=== PATIENT | male | born 1960 | race Caucasian/White ===

== ENCOUNTER 2019-06-19 01:22 | Emergency (ER) | payer OTHER ==
[2019-06-19] MEDS ORDERED: Sodium Chloride 0.9% 1,000 ML IV ONE (01:25)
--- NOTE | 2019-06-19 01:25 | EDM.PDOC ---
ED HPI GENERAL MEDICAL PROBLEM - General Stated Complaint: PT'S HEART RATE IS RACING Time Seen by Provider: 06/19/19 01:25 Source of Information: Reports: Patient - History of Present Illness INITIAL COMMENTS - FREE TEXT/NARRATIVE: HISTORY AND PHYSICAL: History of present illness: [Patient presents for palpitations present for 24 hours, he does have a prior history of atrial fibrillation and presents A. fib and RVR rate ranging up to 140 is provided fluids and Cardizem with resolution of RVR, however he is rate controlled atrial fibrillation has no symptoms such as fever nausea vomiting diarrhea constipation chest pain shortness breath headache dizziness palpitation at this time Patient was going to be admitted for observation however he refused as he wants to return home on [place] train at 11 AM hence he is refusing admission however he has been rate controlled on an extended stay in the emergency room air will provide him metoprolol and started Xarelto and below these findings ] Review of systems: As per history of present illness and below otherwise all systems reviewed and negative. Past medical history: As per history of present illness and as reviewed below otherwise noncontributory. Surgical history: As per history of present illness and as reviewed below otherwise noncontributory. Social history: No reported history of drug or alcohol abuse. Family history: As per history of present illness and as reviewed below otherwise noncontributory. Physical exam: HEENT: Atraumatic, normocephalic, pupils reactive, negative for conjunctival pallor or scleral icterus, mucous membranes moist, throat clear, neck supple, nontender, trachea midline. Lungs: Clear to auscultation, breath sounds equal bilaterally, chest nontender. Heart: S1S2, regular, negative for clicks, rubs, or JVD. Abdomen: Soft, nondistended, nontender. Negative for masses or hepatosplenomegaly. Negative for costovertebral tenderness. Pelvis: Stable nontender. Genitourinary: Deferred. Rectal: Deferred. Extremities: Atraumatic, negative for cords or calf pain. Neurovascular unremarkable. Neuro: Awake, alert, oriented. Cranial nerves II through XII unremarkable. Cerebellum unremarkable. Motor and sensory unremarkable throughout. Exam nonfocal. Diagnostics: [CBC CMP UA troponin INR EKG Chest 1 view ] Therapeutics: [ normal saline Cardizem 20 mg 2 Digoxin 0.125 mg IV Pressure 5 mg IV \ Toprol Xarelto follow-up with primary care or return if symptoms persist or worsen , we did discuss all risks benefits patient agrees consents voices understanding , patient agrees with this plan ] Impression: [ atrial fibrillation rate controlled 70-80 bpm Chronic history of baseline Definitive disposition and diagnosis as appropriate pending reevaluation and review of above. - Related Data Allergies Allergy/AdvReac Type Severity Reaction Status Date / Time No Known Allergies Allergy Verified 06/19/19 01:33 Home Meds: Home Meds Lisinopril 20 mg PO DAILY 07/03/15 [History] Past Medical History Cardiovascular History: Reports: Hypertension - Infectious Disease History Infectious Disease History: Reports: Chicken Pox - Past Surgical History Musculoskeletal Surgical History: Reports: Other (See Below) ED ROS GENERAL - Review of Systems Review Of Systems: See Below ED EXAM, GENERAL - Physical Exam Exam: See Below Course - Vital Signs Last Recorded V/S: Last Vital Signs Temp 97.0 F 06/19/19 01:35 Pulse 100 06/19/19 04:03 Resp 18 06/19/19 03:30 BP 141/80 H 06/19/19 04:03 Pulse Ox 98 06/19/19 03:30 - Orders/Labs/Meds Orders: Active Orders 24 hr Category Date Time Status EKG Documentation Completion [RC] STAT Care 06/19/19 01:25 Active Sodium Chloride 0.9% [Normal Saline] 1,000 ml Med 06/19/19 03:15 Active IV STAT Medication Orders Sodium Chloride (Normal Saline) 1,000 mls @ 200 mls/hr IV STAT RENÉE Last Admin: 06/19/19 03:21 Dose: 200 mls/hr Labs: Laboratory Tests 06/19/19 06/19/19 06/19/19 Range/Units 01:30 01:30 01:30 WBC 7.16 (4.0-11.0) K/uL RBC 5.21 (4.50-5.90) M/uL Hgb 15.5 (13.0-17.0) g/dL Hct 44.7 (38.0-50.0) % MCV 85.8 (80.0-98.0) fL MCH 29.8 (27.0-32.0) pg MCHC 34.7 (31.0-37.0) g/dL RDW Std Deviation 40.5 (28.0-62.0) fl RDW Coeff of Brigitte 13 (11.0-15.0) % Plt Count 352 (150-400) K/uL MPV 11.00 (7.40-12.00) fL Neut % (Auto) 60.1 (48.0-80.0) % Lymph % (Auto) 29.3 (16.0-40.0) % [place]kin % (Auto) 7.0 (0.0-15.0) % Eos % (Auto) 3.2 (0.0-7.0) % Baso % (Auto) 0.4 (0.0-1.5) % Neut # (Auto) 4.3 (1.4-5.7) K/uL Lymph # (Auto) 2.1 (0.6-2.4) K/uL [place]kin # (Auto) 0.5 (0.0-0.8) K/uL Eos # (Auto) 0.2 (0.0-0.7) K/uL Baso # (Auto) 0.0 (0.0-0.1) K/uL INR 0.97 Sodium 141 (136-148) mmol/L Potassium 3.9 (3.5-5.1) mmol/L Chloride 104 (98-107) mmol/L Carbon Dioxide 26.2 (21.0-32.0) mmol/L BUN 16 (7.0-18.0) mg/dL Creatinine 1.1 (0.8-1.3) mg/dL Est Cr Clr Drug Dosing 76.50 mL/min Estimated GFR (MDRD) > 60.0 ml/min Glucose 124 H (74-106) mg/dL Calcium 9.3 (8.5-10.1) mg/dL Total Bilirubin 0.4 (0.2-1.0) mg/dL AST 21 (15-37) IU/L ALT 26 (14-63) IU/L Alkaline Phosphatase 84 (46-116) U/L Troponin I < 0.050 (0.000-0.056) ng/mL Total Protein 7.3 (6.4-8.2) g/dL Albumin 3.8 (3.4-5.0) g/dL Globulin 3.5 (2.6-4.0) g/dL Albumin/Globulin Ratio 1.1 (0.9-1.6) Urine Color Urine Appearance Urine pH (5.0-8.0) Ur Specific Roscoe (1.001-1.035) Urine Protein (NEGATIVE) mg/dL Urine Glucose (UA) (NEGATIVE) mg/dL Urine Ketones (NEGATIVE) mg/dL Urine Occult Blood (NEGATIVE) Urine Nitrite (NEGATIVE) Urine Bilirubin (NEGATIVE) Urine Urobilinogen (<2.0) EU/dL Ur Leukocyte Esterase (NEGATIVE) 06/19/19 Range/Units 02:30 WBC (4.0-11.0) K/uL RBC (4.50-5.90) M/uL Hgb (13.0-17.0) g/dL Hct (38.0-50.0) % MCV (80.0-98.0) fL MCH (27.0-32.0) pg MCHC (31.0-37.0) g/dL RDW Std Deviation (28.0-62.0) fl RDW Coeff of Brigitte (11.0-15.0) % Plt Count (150-400) K/uL MPV (7.40-12.00) fL Neut % (Auto) (48.0-80.0) % Lymph % (Auto) (16.0-40.0) % [place] % (Auto) (0.0-15.0) % Eos % (Auto) (0.0-7.0) % Baso % (Auto) (0.0-1.5) % Neut # (Auto) (1.4-5.7) K/uL Lymph # (Auto) (0.6-2.4) K/uL [place]kin # (Auto) (0.0-0.8) K/uL Eos # (Auto) (0.0-0.7) K/uL Baso # (Auto) (0.0-0.1) K/uL INR Sodium (136-148) mmol/L Potassium (3.5-5.1) mmol/L Chloride (98-107) mmol/L Carbon Dioxide (21.0-32.0) mmol/L BUN (7.0-18.0) mg/dL Creatinine (0.8-1.3) mg/dL Est Cr Clr Drug Dosing mL/min Estimated GFR (MDRD) ml/min Glucose (74-106) mg/dL Calcium (8.5-10.1) mg/dL Total Bilirubin (0.2-1.0) mg/dL AST (15-37) IU/L ALT (14-63) IU/L Alkaline Phosphatase (46-116) U/L Troponin I (0.000-0.056) ng/mL Total Protein (6.4-8.2) g/dL Albumin (3.4-5.0) g/dL Globulin (2.6-4.0) g/dL Albumin/Globulin Ratio (0.9-1.6) Urine Color YELLOW Urine Appearance CLEAR Urine pH 6.5 (5.0-8.0) Ur Specific Roscoe <= 1.005 (1.001-1.035) Urine Protein NEGATIVE (NEGATIVE) mg/dL Urine Glucose (UA) NEGATIVE (NEGATIVE) mg/dL Urine Ketones NEGATIVE (NEGATIVE) mg/dL Urine Occult Blood NEGATIVE (NEGATIVE) Urine Nitrite NEGATIVE (NEGATIVE) Urine Bilirubin NEGATIVE (NEGATIVE) Urine Urobilinogen 0.2 (<2.0) EU/dL Ur Leukocyte Esterase NEGATIVE (NEGATIVE) Meds: Medications Generic Name Dose Route Start Last Admin Trade Name Freq PRN Reason Stop Dose Admin Sodium Chloride 1,000 mls @ 200 mls/hr 06/19/19 03:15 06/19/19 03:21 Normal Saline IV 200 mls/hr STAT RENÉE Administration Discontinued Medications Generic Name Dose Route Start Last Admin Trade Name Freq PRN Reason Stop Dose Admin Digoxin 125 mcg 06/19/19 03:05 06/19/19 03:15 Lanoxin IVPUSH 06/19/19 03:06 125 mcg ONETIME ONE Administration Diltiazem HCl 25 mg 06/19/19 01:28 06/19/19 01:34 Diltiazem IVPUSH 06/19/19 01:29 25 mg ONETIME ONE Administration Diltiazem HCl 20 mg 06/19/19 01:42 06/19/19 02:16 Diltiazem IVPUSH 06/19/19 01:43 Not Given ONETIME ONE Sodium Chloride 1,000 mls @ 999 mls/hr 06/19/19 01:25 06/19/19 01:30 Normal Saline IV 06/19/19 02:25 999 mls/hr STAT ONE Administration Metoprolol Tartrate 5 mg 06/19/19 04:00 06/19/19 04:03 Lopressor IVPUSH 06/19/19 04:01 5 mg ONETIME ONE Administration Metoprolol Tartrate Confirm 06/19/19 04:01 06/19/19 04:15 Lopressor Administered 06/19/19 04:02 Not Given Dose 5 mg .ROUTE .STK-MED ONE Rivaroxaban 10 mg 06/19/19 03:08 06/19/19 03:20 Xarelto PO 06/19/19 03:09 10 mg ONETIME ONE Administration Rivaroxaban 10 mg 06/19/19 03:10 06/19/19 03:20 Xarelto PO 06/19/19 03:11 10 mg ONETIME ONE Administration Departure - Departure Time of Disposition: 05:51 Disposition: Home, Self-Care 01 Condition: Good Clinical Impression: Atrial fibrillation - Discharge Information Additional Instructions: Medication as prescribed Return if symptoms persist or worsen Follow-up with primary care for recheck in next 24 hours The following information is given to patients seen in the emergency department who are being discharged to home. This information is to outline your options for follow-up care. We provide all patients seen in our emergency department with a follow-up referral. The need for follow-up, as well as the timing and circumstances, are variable depending upon the specifics of your emergency department visit. If you don't have a primary care physician on staff, we will provide you with a referral. We always advise you to contact your personal physician following an emergency department visit to inform them of the circumstance of the visit and for follow-up with them and/or the need for any referrals to a consulting specialist. The emergency department will also refer you to a specialist when appropriate. This referral assures that you have the opportunity for follow-up care with a specialist. All of these measure are taken in an effort to provide you with optimal care, which includes your follow-up. Under all circumstances we always encourage you to contact your private physician who remains a resource for coordinating your care. When calling for follow-up care, please make the office aware that this follow-up is from your recent emergency room visit. If for any reason you are refused follow-up, please contact the [facility] emergency department at and asked to speak to the emergency department charge nurse. - My Orders Last 24 Hours: My Active Orders 06/19/19 01:25 EKG Documentation Completion [RC] STAT 06/19/19 03:15 Sodium Chloride 0.9% [Normal Saline] 1,000 ml IV STAT - Assessment/Plan Last 24 Hours: My Active Orders 06/19/19 01:25 EKG Documentation Completion [RC] STAT 06/19/19 03:15 Sodium Chloride 0.9% [Normal Saline] 1,000 ml IV STAT
[2019-06-19] MEDS ORDERED: Diltiazem 25 MG/5 ML SDV IVPUSH ONE ×2 (01:28→01:42)
--- NOTE | 2019-06-19 01:47 | CR ---
INDICATION: chest pain CHEST, ONE VIEW An AP radiograph of the chest was performed. Comparison: No previous studies are currently available for comparison. The lungs appear clear and no pleural effusions are identified. The cardiomediastinal silhouette and pulmonary vasculature appear normal, as do the visualized bones. IMPRESSION: No acute intrathoracic abnormality identified. SERENITY CASTELLANOS MD [employer] Dictated by: Asim Castellanos MD @ 06/19/2019 01:45:59 (Electronically Signed)
[2019-06-19 02:05] LABS: BLOOD UREA NITROGEN,BUN 16 mg/dL (7.0-18.0); CARBON DIOXIDE,CO2 26.2 mmol/L (21.0-32.0); CHLORIDE,CL 104 mmol/L (98-107); GLUCOSE RANDOM 124 mg/dL (74-106); POTASSIUM,K 3.9 mmol/L (3.5-5.1); SODIUM,NA 141 mmol/L (136-148)
[2019-06-19] MEDS ORDERED: Digoxin 500 MCG/2 ML Amp IVPUSH ONE (03:05)
[2019-06-19] MEDS ORDERED: Rivaroxaban 10 MG Tab PO ONE ×2 (03:08→03:10)
[2019-06-19] MEDS ORDERED: Sodium Chloride 0.9% 1,000 ML IV SCH (03:15)
[2019-06-19] MEDS ORDERED: Metoprolol Tartrate 5 MG/5 ML SDV IVPUSH ONE (04:00)
[2019-06-19] MEDS ORDERED: Metoprolol Tartrate 5 MG/5 ML SDV ONE (04:01)
[2019-06-19 06:12] VITALS: BP 124/87
== END 2019-06-19 06:09 | disposition home or self-care (01) ==
LOC: MW.ED 01:22
DX: I48.91 Unspecified atrial fibrillation (principal); I10 Essential (primary) hypertension; Z79.899 Other long term (current) drug therapy
CPT/HCPCS: 36415; 71045; 80053; 81003; 84484; 85025; 85610; 93005; 96361; 96374; 96375; 99285; A9270; J1160; J3490; J7040; 99283